=== PATIENT | female | born 1980 | race Caucasian/White ===

== ENCOUNTER 2017-09-15 20:40 | Emergency (ER) | payer OTHER ==
[~2017-09-15] VITALS: Ht 160 cm; Wt 68.2 kg
[2017-09-15 21:18] VITALS: Ht 160 cm; Wt 68.2 kg
[2017-09-16 00:10] VITALS: BP 122/88
== END 2017-09-16 00:10 | disposition home or self-care (01) ==
LOC: ED 20:40
DX: R42 Dizziness and giddiness (principal)
CPT/HCPCS: J1885

== ENCOUNTER 2018-06-08 19:41 | Emergency (ER) | payer MEDICAID ==
[~2018-06-08] VITALS: Ht 160 cm; Wt 64.9 kg
[2018-06-08 19:46] VITALS: Ht 160 cm; Wt 64.9 kg
[2018-06-08 20:40] LABS: BASOPHIL % 0.4 % (0-2); PLATELET COUNT 284 x10^3mcL (130-400); RED CELL DISTRIBUTION WIDTH 14.9 % (11.5-14.5)
[2018-06-08 20:57] LABS: CALCIUM 8.8 mg/dL (8.5-10.1); CARBON DIOXIDE 29.4 mmol/L (21-32); CHLORIDE SERUM 104 mmol/L (98-107); CREATININE SERUM 0.7 mg/dL (0.6-1.0); GFR1 > 60 mL/min; GLUCOSE SERUM 102 mg/dL (74-106); POTASSIUM SERUM 4.2 mmol/L (3.5-5.1); SODIUM SERUM 139 mmol/L (136-145)
[2018-06-08 21:01] LABS: ALBUMIN 3.6 g/dL (3.4-5.0); ALKALINE PHOSPHATASE 64 U/L (46-116); ALT/SGPT 21 U/L (14-59); AMYLASE 63 U/L (25-115); AST/SGOT 13 U/L (15-37); BILIRUBIN TOTAL 0.26 mg/dL (0.20-1.00); LIPASE 193 IU/L (73-393); TOTAL PROTEIN, SERUM 7.8 g/dL (6.4-8.2)
[2018-06-08 21:16] LABS: AMPHETAMINE QUAL UR NONE DETECTED (See below)
[2018-06-08 22:01] VITALS: BP 107/72
== END 2018-06-08 22:01 | disposition home or self-care (01) ==
LOC: ED 19:41
PROVIDERS: Emergency Medicine
DX: J98.01 Acute bronchospasm (principal); R07.89 Other chest pain; R11.10 Vomiting, unspecified; G89.29 Other chronic pain; M54.9 Dorsalgia, unspecified; D64.9 Anemia, unspecified; Z98.890 Other specified postprocedural states
CPT/HCPCS: 36415; 85378; G0480; J2930; J7613; J7644